=== PATIENT | male | born 1980 | race Caucasian/White ===

== ENCOUNTER → 2019-01-17 12:58 | Outpatient (CLI) | payer OTHER | END | disposition home or self-care (01) | LOC: D.HCCECHO 12:58 → D.HCCARDIO 14:30 | PROVIDERS: ATTEND Internal Medicine Cardiovascular Disease | DX: R00.2 Palpitations (principal) ==

== ENCOUNTER 2019-02-04 07:25 | Day surgery (SDC) | payer OTHER ==
[~2019-02-04] VITALS: Ht 182.9 cm; Wt 93.0 kg
[2019-02-04 08:33] VITALS: BP 151/81; Ht 182.9 cm; Wt 93.0 kg
[2019-02-04] MEDS ORDERED: PERCOCET 5-3251 TAB PO (12:07)
[2019-02-04] MEDS ORDERED: VISTARIL50 MG PO (12:07)
--- NOTE | 2019-02-04 15:39 | OP ---
PATIENT NAME: MATT VALADEZ MEDICAL RECORD: [id number] :78 LOCATION:[facility] ADMISSION DATE: SURGEON: FAUSTINO PAULINO DO DATE OF OPERATION: 02/04/2019 PROCEDURE PERFORMED: Left shoulder arthroscopy with subacromial decompression, distal clavicle excision, and rotator cuff repair with Regeneten graft. PREOPERATIVE DIAGNOSES: Left shoulder rotator cuff tear, subacromial impingement, and acromioclavicular joint arthritis. POSTOPERATIVE DIAGNOSES: Left shoulder rotator cuff tear, subacromial impingement, and acromioclavicular joint arthritis. INDICATIONS: Mr. Valadez is a 38-year-old male who presented to my office with MRIs of both shoulders. He had a partial tear on the right and a full thickness tear on the left according to the MRI on the anterior aspect of the supraspinatus. He has had pain for quite some time and noticed a decrease in strength and he has pain with any overhead lifting. I informed him of the risks and benefits of the procedure and he is 38 and that this is not normal for a 38-year-old, but we would get it repaired; however, it is possible, but we will get it repaired and he would be able to get back to his activities. He was informed of the other risks including infection, bleeding, damage to nerves and vessels, need for further surgery, failure, further tear of the rotator cuff and a frozen shoulder. He was okay with that and then signed the consent. SURGEON: Faustino Paulino DO DESCRIPTION OF PROCEDURE: The patient was given a block by anesthesia in the preoperative area and was taken to the operative suite, laid in the right lateral decubitus position with a well-padded axillary roll. He was given 900 mg of clindamycin. He was sedated and LMA was placed. His left shoulder was then prepped and draped in sterile fashion. A timeout was performed and everyone was in agreement with correct side, site, patient, and procedure. Procedure then began with inflating the left shoulder joint through the posterior portal from an 18-gauge spinal needle and 60 mL of normal saline. This was then removed. A #11 blade scalpel was used to establish a posterior portal and the trocar was entered into the shoulder. The camera was then entered into the shoulder joint, as it was inspected. No loose body was seen in it. The cartilage looked good on the glenoid and humerus, nothing in the inferior gutter. There was no SLAP tear or any labral tear. An anterior portal was established with an 18-gauge spinal needle and 11-blade scalpel and a trocar was brought in. The subscapularis tendon was in good repair as well. However, there was an almost U-shaped tear at the anterior insertion of the supraspinatus just posterior to the very anterior fibers of the supraspinatus at the rotator interval. I then went to the subacromial space, did a distal clavicle excision after lateral portal was established with an 18-gauge spinal needle and an 11-blade scalpel and a distal clavicle excision and subacromial decompression with acromioplasty. His AC joint was practically fused together. It was opened up to approximately 7 mm, giving good space between the acromion and the clavicle. The distal and lateral acromion was then taken down too and smooth out. He has had a large spur there. The bursal side of the rotator cuff did not appear to be fully torn; however, it was partially as there was a full-thickness on the articular side. The scope was then entered back into the articular side of the shoulder joint and the tear was marked. Then, the lateral OPERATIVE REPORT [id number] MATT VALADEZ incision was used and extended. Careful dissection was made down to the tear. The tear was debrided and a single anchor was used with FiberTape to make the repair. One went anterior and one posterior pulling over to a lateral row with an anchor in a very nice repair. The Regeneten graft was then placed on top of it. [place] were placed medially and then laterally into the bone. This had a nice repair as well and laid around on top of the tear. The site was then irrigated. The portals were closed and anterior, posterior with 4-0 Monocryl in inverted interrupted fashion. Lateral incision was closed with 2-0 Vicryl inverted interrupted fashion, 4-0 Monocryl ran on the skin, and Dermabond placed on all the incisions and covered with Telfa and Tegaderm. He was then awakened and taken to recovery in stable condition. BLOOD LOSS: Minimal. COMPLICATIONS: None. TRANSINT:[id number] Voice Confirmation ID: [id number] DOCUMENT ID: [id number] FAUSTINO PAULINO DO at 1539 CC: [id number] DICTATION DATE: 02/04/19 1204 [employer] OPERATOR: 02/04/19 1227 [facility] 02/04/19 [place] [id number] [place] [id number]
== END 2019-02-04 13:30 | disposition home or self-care (01) ==
LOC: D.PAN 07:25 → D.OPS 09:15 → D.PAN 09:45
PROVIDERS: ATTEND Orthopaedic Surgery
DX: S43.422A Sprain of left rotator cuff capsule, initial encounter (principal); M25.812 Other specified joint disorders, left shoulder; M13.811 Other specified arthritis, right shoulder